=== PATIENT | female | born 1940 | race Caucasian/White ===

== ENCOUNTER 2018-01-06 13:04 | Outpatient (CLI) | payer OTHER | END 2018-01-06 13:06 | LOC: CARD 13:04 | PROVIDERS: ATTEND Internal Medicine Cardiovascular Disease | DX: R01.1 Cardiac murmur, unspecified (principal) ==

== ENCOUNTER 2018-02-24 13:56 | Outpatient (CLI) | payer OTHER | END 2018-02-24 13:57 | LOC: CARD 13:56 | PROVIDERS: ATTEND Internal Medicine Cardiovascular Disease | DX: I34.0 Nonrheumatic mitral (valve) insufficiency (principal); E11.9 Type 2 diabetes mellitus without complications; R01.1 Cardiac murmur, unspecified | CPT/HCPCS: G0463 ==